=== PATIENT | male | born 1945 | race Native Hawaiian/Other Pacific Islander ===

== ENCOUNTER 2018-05-17 14:19 | Emergency (ER) | payer MEDICARE, BC ==
[2018-05-17 14:27] VITALS: O2SAT 99
[2018-05-17] MEDS ORDERED: Amoxicillin-Clav 875-125 mg Tab PO STA (14:40)
[2018-05-17] MEDS ORDERED: Tdap Vaccine 0.5 ml Vial (10-64 yrs) IM ONE ×2 (14:40→15:26)
--- NOTE | 2018-05-17 14:56 | C.PDOC ---
History Of Present Illness 72 year old male presents to the emergency department for evaluation of a left leg wound sustained yesterday after being bitten by his neighbor's dog. Patient describes that he "was walking in his backyard when the dog came from behind and bit left calf area". Patient states that he spoke with the pharmacist in charge owner of the dog who reports that the dog's vaccinations are up to date. Patient reports that he cleaned the wound yesterday, and presents today for evaluation. Pt denies fever , chills, CP, SOB, dyspnea, abd. pain, N/V, denies deformities, weakness , sensory or vascular deficits to his left leg. Ambulate to Ed for evaluation, not in any apparent distress. Time Seen by Provider: 05/17/18 14:30 Chief Complaint (Nursing): Bite History Per: Patient History/Exam Limitations: no limitations Onset/Duration Of Symptoms: Days (1) Location Of Injury: Left: Leg Quality Of Symptoms: Other (wound) - Animal Bite Description Of The Attack: Unprovoked Attack Description Of The Animal: Neighbor's Pet Reports Animal's Immunization Status: UTD Past Medical History Reviewed: Historical Data, Nursing Documentation, Vital Signs Vital Signs: Last Vital Signs Temp 98.7 F 05/17/18 16:10 Pulse 81 05/17/18 16:10 Resp 20 05/17/18 16:10 BP 164/86 H 05/17/18 16:10 Pulse Ox 99 05/17/18 16:10 - Medical History PMH: Diabetes Surgical History: No Surg Hx Family History: States: No Known Family Hx - Social History Hx Tobacco Use: No Hx Alcohol Use: No Hx Substance Use: No - Immunization History Hx Tetanus Toxoid Vaccination: No Hx Pneumococcal Vaccination: No Review Of Systems Except As Marked, All Systems Reviewed And Found Negative. Constitutional: Negative for: Fever, Chills Eyes: Negative for: Vision Change Cardiovascular: Negative for: Chest Pain, Palpitations, Edema, Light Headedness Respiratory: Negative for: Cough, Shortness of Breath, Wheezing Gastrointestinal: Negative for: Nausea, Vomiting, Abdominal Pain, Diarrhea Skin: Positive for: Lesions Neurological: Negative for: Weakness, Numbness, Headache, Dizziness Physical Exam - Physical Exam Appears: Well, Non-toxic, No Acute Distress Skin: Normal Color, Warm, Other (left calf area small open wound with scant ecchymoses, no wound discharge, no proximal streaking.) Head: Normacephalic Eye(s): bilateral: PERRL Nose: No Flaring, No Discharge Oral Mucosa: Moist, No Drooling Neck: Trachea Midline, Supple Extremity: Normal ROM (LLE), Tenderness (mild over posterior Left leg over open wound), Capillary Refill (less than 2sec to Left foot), No Deformity Neurological/Psych: Oriented x3, Normal Speech, Normal Motor, Normal Sensation, Normal Reflexes ED Course And Treatment O2 Sat by Pulse Oximetry: 99 Pulse Ox Interpretation: Normal Progress Note: On re-eval, pt is afebrile, hemodynamicaly stable. Non-toxic. Ambulatory in ED with stable gait. PuslEOx 99% RA. ENT: no acute findings. Lungs: CTA B/L, BS equal B/L. LLE: small open wound with scant ecchymoses over Left calf area. NO edema, no erythema, no wound discharge, no proximal streaking. FAROM, no neurovascular deficits. Neurologicaly intact. Pt advised to contact pharmacist in charge owner of dog to clarify immunization status again. Contact Animal Control to notify about injury. Take medictaion as prescribed. return to ED at any time if any worsening or new changes. Disposition Counseled Patient/Family Regarding: Diagnosis, Need For Followup, Rx Given - Disposition Referrals: [facility] [Outside] Disposition: HOME/ ROUTINE Disposition Time: 15:07 Condition: STABLE Additional Instructions: Animal control [phone] [facility] [address] [place] [address] Please, contact pharmacist in charge owner of dog to verify rabies vaccination Contact Animal control to notified about dog bite Take medication as prescribed Keep wound clean, applied antibiotic cream topically daily Follow up with PMD in 1-2 days for re-evaluation. return to ED if any worsening or new changes. 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 - Scribe Statement The provider has reviewed the documentation as recorded by the Scribe (Lc Osborne) All medical record entries made by the Scribe were at my direction and personally dictated by me. I have reviewed the chart and agree that the record accurately reflects my personal performance of the history, physical exam, medical decision making, and the department course for this patient. I have also personally directed, reviewed, and agree with the discharge instructions and disposition.
[2018-05-17] MEDS ORDERED: Bacitracin 500 Units/gm Oint Foilpak UD TOP ONE (15:10)
[2018-05-17] MEDS ORDERED: Bacitracin 500 Units/gm Oint Foilpak UD ONE (15:26)
[2018-05-17] MEDS ORDERED: Amoxicillin-Clav 875-125 mg Tab PO ONE (15:26)
[2018-05-17 16:11] VITALS: BP 164/86; PULSE 81; RESP 20; TEMP 98.7
== END 2018-05-17 16:10 | disposition home or self-care (01) ==
LOC: C.ER 14:19
DX: S81.852A Open bite, left lower leg, initial encounter (principal); W54.0XXA Bitten by dog, initial encounter

== ENCOUNTER 2018-05-31 15:06 | Emergency (ER) | payer MEDICARE, BC ==
[2018-05-31 15:50] VITALS: BP 167/75; PULSE 108; RESP 18; TEMP 97.9; O2SAT 97
--- NOTE | 2018-05-31 17:00 | C.PDOC ---
History Of Present Illness 72 year old male presents to the ER requesting a rabies vaccination after being bitten by a dog on 05/15/18. Patient was seen in the ER on 05/16/18 and told he does not need a rabies vaccination since the dog appears well and he is familiar with the otr owner operator of the dog. Patient presents now because he spoke to animal control who advised him to come in for a rabies vaccination. Time Seen by Provider: 05/31/18 16:25 Chief Complaint (Nursing): Bite History Per: Patient History/Exam Limitations: no limitations Onset/Duration Of Symptoms: Days Current Symptoms Are (Timing): Still Present Recent travel outside of the [place]: No Past Medical History Reviewed: Historical Data, Nursing Documentation, Vital Signs Vital Signs: Last Vital Signs Temp 97.9 F 05/31/18 15:46 Pulse 108 H 05/31/18 15:46 Resp 18 05/31/18 15:46 BP 167/75 H 05/31/18 15:46 Pulse Ox 97 05/31/18 17:36 - Medical History PMH: Diabetes, HTN Family History: States: Unknown Family Hx - Social History Hx Tobacco Use: No Hx Alcohol Use: Yes Hx Substance Use: No - Immunization History Hx Tetanus Toxoid Vaccination: Yes Hx Influenza Vaccination: No Hx Pneumococcal Vaccination: No Review Of Systems Constitutional: Negative for: Fever, Chills Cardiovascular: Negative for: Chest Pain, Palpitations Respiratory: Negative for: Cough, Shortness of Breath Skin: Positive for: Other (Healed dog bite). Negative for: Rash Physical Exam - Physical Exam Appears: Non-toxic Skin: Normal Color, Warm, Dry Head: Atraumatic, Normacephalic Eye(s): bilateral: Normal Inspection Oral Mucosa: Moist Chest: Symmetrical, No Tenderness Cardiovascular: Rhythm Regular Respiratory: Normal Breath Sounds, No Rales, No Rhonchi, No Wheezing Gastrointestinal/Abdominal: Soft, No Tenderness Neurological/Psych: Oriented x3, Normal Speech ED Course And Treatment O2 Sat by Pulse Oximetry: 97 (Room air) Pulse Ox Interpretation: Normal Medical Decision Making Medical Decision Making: Patient is resting comfortably in the ER in no acute distress, vitals are stable , patient reassured that no rabies series vaccination is required at this time as patient is out of the window of rabies and advised to follow up with PMD. Disposition - Disposition Disposition: HOME/ ROUTINE Disposition Time: 16:10 Condition: GOOD Additional Instructions: Follow up with the medical doctor within 1-2 days. Return if worsened. 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 - Scribe Statement The provider has reviewed the documentation as recorded by the Scribe Gerry De La Rosa All medical record entries made by the Scribe were at my direction and personally dictated by me. I have reviewed the chart and agree that the record accurately reflects my personal performance of the history, physical exam, medical decision making, and the department course for this patient. I have also personally directed, reviewed, and agree with the discharge instructions and disposition.
== END 2018-05-31 16:52 | disposition home or self-care (01) ==
LOC: C.ER 15:06
DX: T14.90XA Injury, unspecified, initial encounter (principal); W54.0XXA Bitten by dog, initial encounter; E11.9 Type 2 diabetes mellitus without complications; I10 Essential (primary) hypertension